=== PATIENT | female | born 1955 | race Caucasian/White ===

== ENCOUNTER 2020-03-12 12:40 | Inpatient (IN) | payer OTHER ==
[~2020-03-12] VITALS: Ht 99.1 cm; Wt 63.5 kg
[~2020-03-12 12:40] MED LIST: AMPICILLIN TRI500 MG PO; CARAFATE SU1 G/10 ML PO; CIPRO500 MG PO; FLAGYL500MG PO; FLUCONAZOLE100 MG PO; FLUCONAZOLE200 MG PO; KEFLEX250 MG PO; LEVSIN/SL0.125 MG PO; LIPITOR20 MG PO; METRONIDAZOLE500 MG PO; NEURONTIN300 MG; PERCOCET 5/3251 TAB PO; PROTONIX40 MG PO; SIMETHICONE GA125 MG PO; ULTRACET PO; ZOFRAN4 MG PO; [UNRECOGNIZED DRUG - OTHER]
== END 2020-03-17 11:41 | disposition home or self-care (01) | DRG 336 ==
LOC: ER 12:40 → SURH 17:46
PROVIDERS: ADMIT Surgery; ATTEND Surgery
PROC: 0DN84ZZ Release Small Intestine, Percutaneous Endoscopic Approach (ICD-10-PCS; 2020-03-13)
PROC: 0WUF4JZ Supplement Abdominal Wall with Synthetic Substitute, Percutaneous Endoscopic Approach (ICD-10-PCS; principal; 2020-03-13 13:00)
PROC: 3E0F7GC Introduction of Other Therapeutic Substance into Respiratory Tract, Via Natural or Artificial Opening (ICD-10-PCS; 2020-03-15)
DX: K43.6 Other and unspecified ventral hernia with obstruction, without gangrene (principal); K56.52 Intestinal adhesions [bands] with complete obstruction; J45.20 Mild intermittent asthma, uncomplicated; Z20.828 Contact with and (suspected) exposure to other viral communicable diseases

== ENCOUNTER 2021-12-05 18:05 | Inpatient (IN) | payer OTHER ==
[~2021-12-05] VITALS: Ht 160 cm; Wt 66.7 kg
[2021-12-07] MEDS ORDERED: FAMOTIDINE20 MG (08:24)
[2021-12-07] MEDS ORDERED: PREMARIN30 GM (08:24)
[2021-12-07] MEDS ORDERED: DIPHENHYDR50 MG/1 M1 (08:24)
[2021-12-07] MEDS ORDERED: OMEPRAZOLE20 MG (08:24)
[2021-12-07] MEDS ORDERED: ENALAPRIL MALEA10 MG (08:24)
[2021-12-07] MEDS ORDERED: DIPHENOXYLATE-1 EACH (08:25)
[2021-12-18] MEDS ORDERED: INTESTINEX680 M1 PO (08:34)
[2021-12-18] MEDS ORDERED: LEVSIN/SL0.125 MG SL (08:35)
== END 2021-12-18 14:27 | disposition home or self-care (01) | DRG 337 ==
LOC: ER 18:05 → SURH 12-06 11:38
PROVIDERS: ADMIT Surgery; ATTEND Surgery
PROC: 0D9670Z Drainage of Stomach with Drainage Device, Via Natural or Artificial Opening (ICD-10-PCS; 2021-12-06)
PROC: 0DNW4ZZ Release Peritoneum, Percutaneous Endoscopic Approach (ICD-10-PCS; 2021-12-12)
PROC: 0WQF4ZZ Repair Abdominal Wall, Percutaneous Endoscopic Approach (ICD-10-PCS; 2021-12-12)
PROC: 0DN84ZZ Release Small Intestine, Percutaneous Endoscopic Approach (ICD-10-PCS; principal; 2021-12-12 16:15)
DX: K56.51 Intestinal adhesions [bands], with partial obstruction (principal); K43.9 Ventral hernia without obstruction or gangrene; E86.0 Dehydration; I11.9 Hypertensive heart disease without heart failure; E78.5 Hyperlipidemia, unspecified; F43.20 Adjustment disorder, unspecified

== ENCOUNTER → 2022-05-23 | Emergency (ER) | payer OTHER ==
[~2022-05-23] VITALS: Ht 160 cm; Wt 60.8 kg
[~2022-05-23] MED LIST changes: +DIPHENHYDR50 MG/1 M1; +DIPHENOXYLATE-1 EACH; +ENALAPRIL MALEA10 MG; +FAMOTIDINE20 MG; +INTESTINEX680 M1 PO; +LEVSIN/SL0.125 MG SL; +OMEPRAZOLE20 MG; +PEPCID AC20 MG PO; +PREMARIN30 GM; +PRILOSEC OTC20 MG PO; +VASOTEC10 MG
== END | disposition home or self-care (01) ==
LOC: ER 11:51
DX: K56.609 Unspecified intestinal obstruction, unspecified as to partial versus complete obstruction (principal); K57.92 Diverticulitis of intestine, part unspecified, without perforation or abscess without bleeding; Z88.2 Allergy status to sulfonamides; Z88.8 Allergy status to other drugs, medicaments and biological substances; E78.00 Pure hypercholesterolemia, unspecified; K29.70 Gastritis, unspecified, without bleeding; E86.0 Dehydration; N39.0 Urinary tract infection, site not specified